=== PATIENT | male | born 1980 | race Caucasian/White ===

== ENCOUNTER → 2020-01-25 | Outpatient (CLI) | payer OTHER ==
--- NOTE | 2020-01-25 15:58 | REP ---
INDICATION: PAIN, SWELLING,TENDERNESS OF ANTERIOR 10TH RIB. COMPARISON: None. TECHNIQUE: PA chest with 4 left rib images FINDINGS: PA chest: Lungs well inflated and clear. The heart mediastinal hilar contours are normal. The aorta and airway intact. No widening of the mediastinum. Visualized ribs, spine, clavicles and shoulders without acute bony abnormality. Chest wall jewelry over the bilateral lower lung salvador. Left ribs clavicle, AC joint and visualized scapula were without fracture focal bone lesion. There is mild widening of the AC joint on the left compared to the right on seen on chest x-ray. This may be resorption or old AC joint injury. Glenohumeral joint grossly intact scapula without fracture in the visualized ribs and their posterior tissue lesions are unremarkable there is no pleural thickening, pleural effusion or pneumothorax. No displaced fracture or focal rib lesion identified. IMPRESSION: 1. Negative PA chest. 2. No evidence of rib fracture, focal rib lesion, pleural effusion or pneumothorax. Negative exam. <Electronically signed by Karsten De La Paz > 01/25/20 [id number]
== END ==
LOC: M CLY 13:40
PROVIDERS: ATTEND Physician Assistant
DX: R07.89 Other chest pain (principal)

== ENCOUNTER → 2021-01-26 | Outpatient (CLI) | payer OTHER ==
--- NOTE | 2021-01-26 10:08 | REP ---
INDICATION: M25.562, LEFT MEDIAL KNEE PAIN COMPARISON: None TECHNIQUE: Five views FINDINGS: The compartments are symmetric and well maintained. There is no fracture or destructive osseous lesion. IMPRESSION: Within normal limits <Electronically signed by Zachery Morel > 01/26/21 [id number]
== END ==
LOC: M CLY 08:35
PROVIDERS: ATTEND Family Medicine
DX: M25.562 Pain in left knee (principal)

== ENCOUNTER → 2022-04-23 | Outpatient (CLI) | payer OTHER | LOC: M CLY 11:50 | PROVIDERS: ATTEND Physician Assistant | DX: M54.6 Pain in thoracic spine (principal) ==

== ENCOUNTER → 2022-09-09 | Outpatient (CLI) | payer OTHER | LOC: M CLY 15:40 | PROVIDERS: ATTEND Physician Assistant | DX: R29.898 Other symptoms and signs involving the musculoskeletal system (principal) ==

== ENCOUNTER → 2023-01-11 | Outpatient (CLI) | payer OTHER | LOC: M RAD 08:58 | PROVIDERS: ATTEND Family Medicine | DX: M25.562 Pain in left knee (principal); S83.242A Other tear of medial meniscus, current injury, left knee, initial encounter; X58.XXXA Exposure to other specified factors, initial encounter; Y92.9 Unspecified place or not applicable ==

== ENCOUNTER 2023-07-28 09:49 | Day surgery (SDC) | payer OTHER ==
[~2023-07-28] VITALS: Ht 180.3 cm; Wt 86.0 kg
[~2023-07-28 09:49] MED LIST: HYDR-3713 PO; IBUP80TA PO; SUMA100T2 PO
[2023-07-28] MEDS ORDERED: propofoL 200 MG/20 ML VIAL As Ordered ONE (10:34)
[2023-07-28] MEDS ORDERED: ONDANSETRON 4MG 2ML VIAL As Ordered ONE (10:34)
[2023-07-28] MEDS ORDERED: LIDOCAINE 2% 100MG/5ML SDV (FOR ANES.) As Ordered ONE (10:34)
[2023-07-28] MEDS ORDERED: KETOROLAC 60MG 2ML VIAL As Ordered ONE (10:34)
[2023-07-28] MEDS ORDERED: MIDAZOLAM INJ 2MG/2ML VIAL As Ordered ONE (10:37)
[2023-07-28] MEDS ORDERED: fentaNYL 100 MCG/2 ML INJECTION As Ordered ONE (10:37)
[2023-07-28] MEDS ORDERED: BACITRACIN OINTMENT 30GM TUBE As Ordered ONE (10:40)
[2023-07-28] MEDS ORDERED: ACETAMINOPHEN 1000MG 100ML IV BAG As Ordered ONE (10:56)
[2023-07-28] MEDS ORDERED: LR 1,000 ML IV SCH (11:30)
[2023-07-28] MEDS ORDERED: fentaNYL 100 MCG/2 ML INJECTION IV PRN (11:30)
[2023-07-28] MEDS: ONDANSETRON 4MG 2ML VIAL IV PRN (12:04)
[2023-07-28] MEDS: oxyCODONE 5MG TAB PO PRN (12:05)
[2023-07-28] MEDS: HYDROMORPHONE HCL 0.5 MG/ 0.5 ML SYRINGE IV PRN (12:21)
[2023-07-28 12:40] VITALS: BP 122/73; TEMP 98; O2SAT 100
== END 2023-07-28 13:00 | disposition home or self-care (01) ==
LOC: M SDC 09:49
PROVIDERS: ATTEND Orthopaedic Surgery Hand Surgery
DX: G56.02 Carpal tunnel syndrome, left upper limb (principal); G43.909 Migraine, unspecified, not intractable, without status migrainosus; Z79.899 Other long term (current) drug therapy; F17.210 Nicotine dependence, cigarettes, uncomplicated; F12.10 Cannabis abuse, uncomplicated
CPT/HCPCS: 29848; J0131; J0665; J1100; J1170; J1885; J2250; J2405; J3010